=== PATIENT | female | born 1985 | race Caucasian/White ===

== ENCOUNTER 2020-07-17 15:03 | Observation (INO) ==
[2020-07-17 15:40] LABS: Basophils # 0.1 K/mcL (0.0-0.2); Basophils % 0.9 %; Eosinophils # 0.2 K/mcL (0.0-0.6); Eosinophils % 2.5 %; Hematocrit 43.4 % (35.3-44.9); Hemoglobin 15.6 g/dL (11.5-15.4); Immature Granulocytes % 0.3 % (0-4); Lymphocytes # 1.9 K/mcL (0.6-4.6); Lymphocytes % 29.7 %; Mean Corpuscular HGB Conc 35.9 g/dL (31.6-35.5); Mean Corpuscular Hemoglobin 34.3 pg (28.0-33.3); Mean Corpuscular Volume 95.4 fL (83.0-100.0); Mean Platelet Volume 10.8 fL (9.4-12.4); Monocytes # 0.5 K/mcL (0.0-1.3); Neutrophils # 3.9 K/mcL (1.6-8.9); Platelet Count 103 K/mcL (140-400); Red Blood Count 4.55 M/mcL (3.82-4.97); Red Cell Distribution Width 16.5 % (11.5-14.5); Segmented Neutrophils % 59.6 %; White Blood Count 6.5 K/mcL (4.3-11.1)
[2020-07-17 15:42] LABS: INR 1.1; Prothrombin Time 11.9 Seconds (9.4-12.1)
[2020-07-17 15:54] LABS: BUN/Creatinine Ratio 14 (6-26); Blood Urea Nitrogen 8 mg/dL (6-20); Carbon Dioxide 29 mEq/L (23-29); Chloride 93 mEq/L (98-107); Glucose 134 mg/dL (70-105); Osmolality,Calculated 286 (280-300); Potassium 2.7 mEq/L (3.5-5.1); Sodium 138 mEq/L (136-145); eGFR For African Americans > 60 (> 60); eGFR For Non-African Americans > 60 (> 60)
[2020-07-17 15:55] LABS: Macrocytosis Present (Not Present); Platelet Estimate Decreased (Normal); Troponin I < 0.03 ng/mL (< 0.04)
[2020-07-17] MEDS ORDERED: Ondansetron 4 MG/2 ML VIAL IVP ONE ×2 (16:14→19:25)
[2020-07-17] MEDS ORDERED: 0.9 % Sodium Chloride 1,000 ML IVC ONE ×2 (16:14→18:38)
[2020-07-17 16:30] LABS: Bilirubin,Urine Moderate (Negative); Blood,Urine Large (Negative); Clarity,Urine Slightly Cloudy (Clear); Color,Urine Orange (Yellow); Glucose,Urine (UA) Normal (Normal); Ketones,Urine Trace mg/dL (Negative); Leukocyte Esterase,Urine Negative (Negative); Nitrite,Urine Positive (Negative); PH,Urine 5.5 pH Units (5.0-8.0); Protein,Urine >=300 mg/dL (Neg-Trace); Specific Gravity,Urine >= 1.030 (1.010-1.025)
[2020-07-17 16:31] LABS: Magnesium 1.4 mg/dL (1.6-2.6); Phosphorous 2.9 mg/dL (2.7-4.5)
[2020-07-17 16:34] LABS: Amorphous Sediment,Urine Few per hpf (None-Few); Squamous Epithelial Cell,Urine Many per hpf (None-Few)
[2020-07-17 16:35] LABS: RBC,Urine 15-30 per hpf (0-3)
[2020-07-17 16:38] LABS: Bacteria,Urine Many per hpf (None-Few)
[2020-07-17] MEDS ORDERED: Magnesium Oxide 400 MG TABLET PO STA (17:16)
[2020-07-17] MEDS ORDERED: ceFAZolin 1,000 MG in Water for inj. (sterile) 10 ML IVP ONE (17:20)
[2020-07-17] MEDS ORDERED: Nicotine 14 MG PATCH.TD24 TD ONE (18:12)
[2020-07-17] MEDS ORDERED: cefTRIAXone 1,000 MG in Water for inj. (sterile) 10 ML IVP ONE (18:38)
[2020-07-17] MEDS ORDERED: Isovue-370 500 ML BOTTLE IVP ONE (18:39)
[2020-07-17] MEDS ORDERED: Naloxone 0.4 MG/ML INJ IVP PRN ×2 (19:21→21:17)
[2020-07-17] MEDS ORDERED: Ondansetron ODT 4 MG TAB.RAPDIS SL PRN ×2 (19:21→21:17)
[2020-07-17] MEDS ORDERED: *HR* LORazepam 2 MG/ML VIAL IVP PRN ×4 (19:23→21:17)
[2020-07-17] MEDS ORDERED: 0.9 % Sodium Chloride 1,000 ML IVC SCH (19:30)
[2020-07-17] MEDS ORDERED: Ketorolac 15 MG/ML VIAL IVP PRN (20:47)
[2020-07-17] MEDS: *HR* LORazepam 2 MG/ML VIAL IVP PRN ×2 (21:32→23:07)
[2020-07-17] MEDS: Ketorolac 15 MG/ML VIAL IVP PRN (21:37)
[2020-07-17] MEDS: 0.9 % Sodium Chloride 1,000 ML IVC SCH (21:58)
[2020-07-18] MEDS: Ketorolac 15 MG/ML VIAL IVP PRN ×2 (05:12→20:32)
[2020-07-18] MEDS: Ondansetron 4 MG/2 ML VIAL IVP PRN ×2 (05:13→20:41)
[2020-07-18] MEDS: 0.9 % Sodium Chloride 1,000 ML IVC SCH (05:17)
[2020-07-18 06:17] LABS: Basophils # 0.1 K/mcL (0.0-0.2); Basophils % 0.6 %; Eosinophils % 0.4 %; Hematocrit 34.2 % (35.3-44.9); Hemoglobin 12.2 g/dL (11.5-15.4); Immature Granulocytes % 0.5 % (0-4); Lymphocytes # 1.5 K/mcL (0.6-4.6); Lymphocytes % 18.6 %; Mean Corpuscular HGB Conc 35.7 g/dL (31.6-35.5); Mean Corpuscular Hemoglobin 35.1 pg (28.0-33.3); Mean Corpuscular Volume 98.3 fL (83.0-100.0); Mean Platelet Volume 11.5 fL (9.4-12.4); Monocytes # 0.3 K/mcL (0.0-1.3); Monocytes % 3.2 %; Neutrophils # 6.1 K/mcL (1.6-8.9); Red Blood Count 3.48 M/mcL (3.82-4.97); Red Cell Distribution Width 16.9 % (11.5-14.5); Segmented Neutrophils % 76.7 %
[2020-07-18 06:24] LABS: Platelet Count 72 K/mcL (140-400)
[2020-07-18 06:25] LABS: Platelet Estimate Marked Decrease (Normal); Reactive Lymphocytes Present (Not Present)
[2020-07-18 06:30] LABS: BUN/Creatinine Ratio 12 (6-26); Blood Urea Nitrogen 7 mg/dL (6-20); Calcium 7.6 mg/dL (8.6-10.3); Carbon Dioxide 29 mEq/L (23-29); Chloride 100 mEq/L (98-107); Glucose 80 mg/dL (70-105); Magnesium 1.1 mg/dL (1.6-2.6); Osmolality,Calculated 287 (280-300); Potassium 2.8 mEq/L (3.5-5.1); Sodium 140 mEq/L (136-145); eGFR For African Americans > 60 (> 60); eGFR For Non-African Americans > 60 (> 60)
[2020-07-18] MEDS ORDERED: Nicotine 14 MG PATCH.TD24 TD SCH (09:00)
[2020-07-18] MEDS ORDERED: cefTRIAXone 2,000 MG in Water for inj. (sterile) 20 ML IVP SCH ×2 (09:00→20:00)
[2020-07-18] MEDS: *HR* LORazepam 2 MG/ML VIAL IVP PRN ×3 (17:14→23:15)
[2020-07-18] MEDS: Nicotine 14 MG PATCH.TD24 TD SCH (20:32)
[2020-07-18 20:40] LABS: Basophils % 0.5 %; Eosinophils # 0.1 K/mcL (0.0-0.6); Eosinophils % 0.9 %; Hematocrit 37.5 % (35.3-44.9); Hemoglobin 13.1 g/dL (11.5-15.4); Immature Granulocytes % 0.4 % (0-4); Lymphocytes # 1.4 K/mcL (0.6-4.6); Mean Corpuscular HGB Conc 34.9 g/dL (31.6-35.5); Mean Corpuscular Hemoglobin 34.9 pg (28.0-33.3); Mean Platelet Volume 11.1 fL (9.4-12.4); Monocytes # 0.2 K/mcL (0.0-1.3); Monocytes % 4.1 %; Neutrophils # 3.9 K/mcL (1.6-8.9); Red Blood Count 3.75 M/mcL (3.82-4.97); Red Cell Distribution Width 16.7 % (11.5-14.5); Segmented Neutrophils % 69.1 %; White Blood Count 5.7 K/mcL (4.3-11.1)
[2020-07-18 20:41] LABS: Platelet Count 75 K/mcL (140-400)
[2020-07-18 21:00] LABS: Alanine Aminotransferase 140 Units/L (7-52); Albumin 3.3 g/dL (3.5-5.7); Albumin/Globulin Ratio 1.6 (1.1-2.2); Alkaline Phosphatase 139 Units/L (34-104); Aspartate Amino Transferase 268 Units/L (13-39); BUN/Creatinine Ratio 12 (6-26); Blood Urea Nitrogen 7 mg/dL (6-20); Calcium 8.2 mg/dL (8.6-10.3); Carbon Dioxide 28 mEq/L (23-29); Chloride 101 mEq/L (98-107); Globulin 2.1 g/dL (2.4-3.5); Glucose 104 mg/dL (70-105); Magnesium 2.3 mg/dL (1.6-2.6); Osmolality,Calculated 282 (280-300); Phosphorous 1.4 mg/dL (2.7-4.5); Potassium 3.9 mEq/L (3.5-5.1); Sodium 137 mEq/L (136-145); Total Protein 5.4 g/dL (6.4-8.9); eGFR For African Americans > 60 (> 60); eGFR For Non-African Americans > 60 (> 60)
[2020-07-19] MEDS: *HR* LORazepam 2 MG/ML VIAL IVP PRN (03:37)
[2020-07-19 07:33] VITALS: BP 123/87
[2020-07-19 08:57] LABS: Basophils % 0.3 %; Eosinophils # 0.2 K/mcL (0.0-0.6); Eosinophils % 3.2 %; Hematocrit 36.4 % (35.3-44.9); Hemoglobin 12.6 g/dL (11.5-15.4); Immature Granulocytes % 0.3 % (0-4); Lymphocytes # 1.4 K/mcL (0.6-4.6); Lymphocytes % 22.2 %; Mean Corpuscular HGB Conc 34.6 g/dL (31.6-35.5); Mean Corpuscular Hemoglobin 34.3 pg (28.0-33.3); Mean Corpuscular Volume 99.2 fL (83.0-100.0); Mean Platelet Volume 11.4 fL (9.4-12.4); Monocytes # 0.2 K/mcL (0.0-1.3); Monocytes % 3.5 %; Neutrophils # 4.5 K/mcL (1.6-8.9); Red Blood Count 3.67 M/mcL (3.82-4.97); Segmented Neutrophils % 70.5 %; White Blood Count 6.3 K/mcL (4.3-11.1)
[2020-07-19 09:04] LABS: Platelet Count 71 K/mcL (140-400)
[2020-07-19] MEDS: Nicotine 14 MG PATCH.TD24 TD SCH (09:05)
[2020-07-19 09:11] LABS: BUN/Creatinine Ratio 14 (6-26); Blood Urea Nitrogen 6 mg/dL (6-20); Calcium 8.3 mg/dL (8.6-10.3); Carbon Dioxide 26 mEq/L (23-29); Chloride 104 mEq/L (98-107); Glucose 88 mg/dL (70-105); Osmolality,Calculated 283 (280-300); Potassium 3.6 mEq/L (3.5-5.1); Sodium 138 mEq/L (136-145); eGFR For African Americans > 60 (> 60); eGFR For Non-African Americans > 60 (> 60)
[2020-07-19] MEDS ORDERED: Nicotine 14 MG PATCH.TD24 TD SCH (20:00)
== END 2020-07-19 12:25 | disposition home or self-care (01) ==
LOC: EMEROOGRE 15:03 → INPGRE 15:03 → SUATTDRO 19:31 → INPGRE 19:42
PROVIDERS: ADMIT Family Medicine; ATTEND Family Medicine